=== PATIENT | female | born 1965 | race Caucasian/White ===

== ENCOUNTER → 2017-12-22 | Outpatient (CLI) | payer OTHER ==
[2014-08-05 10:35] VITALS: BMI 27.3
[~2017-12-22] MED LIST: ARIP15TA9 PO; CHOL10005 PO; DIPH-740 PO; GOLYTE PO; LAMO200T3 PO; LAMO200T45 PO; LAMO25TB2 PO; LEVO50TA86 PO; LEVO75TA68 PO; LEVO75TA73 PO; LITC450 PO; MELA3TAB31 PO; MELA5TAB6 PO; MIRT-1 PO; MIRT-25 PO; MIRT-28 PO; OLAN10TA25 PO; OLAN5TAB25 PO; OMEGA-3 + VITA1 EAC1 PO; VENL37.594 PO; ZOLP12.548 PO
--- NOTE | 2017-12-22 14:22 | RADIOLOGY IMAGING REPORT ---
FACILITY: [facility] PATIENT NAME: Marleni Khan : 1965 MR: [id number] V: [id number] EXAM DATE: ORDERING PHYSICIAN: NIMISHA SÁNCHEZ [place]CHNOLOGIST[place] [facility] [place]i [place] : 1965 Visit/Account:[id number] Date of Sevice: 12/22/2017 THYROID HISTORY: Follow-up nodules COMPARISON: Ultrasound dated December 06, 2016. FINDINGS: SIZE: Normal. Right lobe: 5.2 x 1.6 x 1.2 cm Left lobe: 4.5 x 1.4 x 1.3 cm Isthmus: 4 mm Thyroid heterogeneity: Homogeneous. NODULES: Right lobe: * No nodule with a high suspicion sonographic pattern or measuring greater than or equal to 1 cm. La rgest nodule measures up to 8 mm in diameter, grossly unchanged. Left lobe: * Small sub-5 mm cyst within the superior pole. Otherwise negative. Isthmus: * None discrete. VASCULARITY: Within normal limits. ADDITIONAL FINDINGS: None. IMPRESSION: 1. No dominant thyroid nodules. 2. Subcentimeter right thyroid nodules are grossly unchanged. Report Dictated By: Robert Elmore MD at 12/22/2017 2:16 PM Report E-Signed By: Robert Elmore MD at 12/22/2017 2:17 PM WSN:ANA LILIA
--- NOTE | 2017-12-22 15:23 | RADIOLOGY IMAGING REPORT ---
[facility] PATIENT NAME: LUCA ACKERMAN : [id number] MR: [id number] V: [id number] EXAM DATE: ORDERING PHYSICIAN: NIMISHA SÁNCHEZ TECHNOLOGIST: Callie Patino PROCEDURE:BILATERAL DIGITAL SCREENING MAMMOGRAM WITH CAD ASSISTED INTERPRETATION & 3D TOMOSYNTHESIS COMPARISON:Prior mammograms 04/26/16, 05/01/14, 05/11/12. INDICATIONS:SCREENING FINDINGS: Moderate amount of fibroglandular tissue is seen throughout the breasts. The parenchymal pattern has remained stable allowing for difference in mammographic technique & patient positioning. There is no evidence of malignant appearing mass, malignant appearing calcifications or other secondary sign of malignancy in either breast. DIAGNOSTIC CATEGORY 1--NEGATIVE. RECOMMENDATIONS: ROUTINE MAMMOGRAM AND CLINICAL EVALUATION. IMPRESSION: BIRADS 1: Negative. No significant abnormality is seen. Dictated by: Nathalie Tello M.D. on 12/22/2017 at 14:42 Transcribed by: GLENDY on 12/22/2017 at 14:53 Approved by: Nathalie Tello M.D. on 12/22/2017 at 15:22 [facility]
== END ==
LOC: MAMO 03:59
PROVIDERS: ATTEND Family Medicine
DX: Z12.31 Encounter for screening mammogram for malignant neoplasm of breast (principal); E04.1 Nontoxic single thyroid nodule
CPT/HCPCS: 76536; 77063; 77067